=== PATIENT | female | born 1965 | race Two or more races ===

== ENCOUNTER 2020-01-04 10:35 | Emergency (ER) | payer OTHER ==
[~2020-01-04] VITALS: Ht 172.7 cm; Wt 51.7 kg
[2020-01-04 11:05] LABS: BASOPHILS % (AUTO) 0 % (0-1); EOSINOPHILS % (AUTO) 0 % (1-7); LYMPHOCYTES # (AUTO) 0.37 x10^3/uL (1-3.4); LYMPHOCYTES % (AUTO) 7 % (22-44); MD NO; MEAN CORPUSCULAR HEMOGLOBIN 29.3 pg (27.0-34.8); MEAN CORPUSCULAR HGB CONC 33.7 g/dL (32.4-35.8); MEAN CORPUSCULAR VOLUME 86.9 fL (80-100); MEAN PLATELET VOLUME 10.6 fL (7.4-10.4); MONOCYTES # (AUTO) 0.05 x10^3/uL (0.2-0.8); MONOCYTES % (AUTO) 1 % (2-9); NEUTROPHILS # (AUTO) 5.03 x10^3/uL (1.8-6.8); NEUTROPHILS % (AUTO) 92 % (42-75); PLATELET COUNT 150 x10^3/uL (130-400); RED BLOOD COUNT 5.56 x10^6/uL (3.82-5.3); RED CELL DISTRIBUTION WIDTH 13.8 % (9.6-15.2)
--- NOTE | 2020-01-04 11:05 | NUR ---
Late entry due to pt care: Pt arrived via EMS from home. Per EMS pt's Binh called 911 when he found his in bed unresponsive this morning. Binh found a suicide note at the foot of the bed as well as an empty bottle of Lorazepam by pt's head. Lorazepam bottle dated that it was filled April 2018, unknown how many pills were in the bottle. On pt arrival to ER pt responsive only to painful stimuli, is able to swallow her own secretions and maintain her own airway. Pt placed in gown, positioned for comfort in bed. Dr. Newell at bedside on pt arrival to department. Continuous heart, oxygen and BP monitors applied, all safety measures observed. Marroquin inserted per Dr. Newell, urine sample obtained, labeled at bedside, sent to lab.
--- NOTE | 2020-01-04 11:11 | NUR ---
Pt's Binh now at bedside, POC discussed. Binh appears very distressed, verbal reassurance provided. Arin SW at bedside to speak with pt's .
[2020-01-04 11:15] LABS: ALANINE AMINOTRANSFERASE 23 U/L (12-78); ALBUMIN 4.1 g/dL (3.4-5.0); ANION GAP 7 mmol/L (5-15); CALCIUM 9.2 mg/dL (8.5-10.1); CHLORIDE 108 mmol/L (98-107); CREATININE 0.98 mg/dL (0.55-1.02)
[2020-01-04 11:19] LABS: ALKALINE PHOSPHATASE 74 U/L (45-117); BILIRUBIN,TOTAL 0.7 mg/dL (0.2-1.0); TOTAL PROTEIN 8.1 g/dL (6.4-8.2)
--- NOTE | 2020-01-04 11:21 | NUR ---
Dr. Newell at bedside to speak with pt's Binh. No change in pt condition at this time.
[2020-01-04] MEDS ORDERED: LORA-446 PO (11:23)
[2020-01-04] MEDS ORDERED: OLAN5TAB9 PO (11:23)
[2020-01-04] MEDS ORDERED: MIRT-34 PO (11:23)
[2020-01-04 11:24] LABS: SALICYLATE LEVEL < 1.7 mg/dL (2.8-20.0)
[2020-01-04 11:33] LABS: MICROSCOPIC AUTO
[2020-01-04 11:40] LABS: CULTURE INDICATED? YES
--- NOTE | 2020-01-04 11:57 | NUR ---
Pt's Binh remains at bedside, POC discussed and verbal reassurance provided. No change in pt condition at this time.
[2020-01-04] MEDS ORDERED: CEFTRIAXONE PMX 1GM/50ML 50 ML IV ONE (12:00)
[2020-01-04] MEDS ORDERED: CEFTRIAXONE PMX 1GM/50ML 50 ML ONE (12:03)
--- NOTE | 2020-01-04 12:14 | NUR ---
BREAK RN: PT RESTING ON GRUNEY. NO ACUTE DISTRESS NOTED. PT RESPONSIVE TO PAIN. RESP SHALLOW BUT EVEN AND UNLABORED. PUPILS 4MM PERRLA. PT ON CONT BP, CARDIAC AND O2 MONITORS. NSR 70'S NOTED ON CARIDAC MONITOR. AT BEDSIDE.
[2020-01-04 12:41] LABS: AMPHETAMINE SCREEN, URINE Negative (Negative); BARBITURATE SCREEN, URINE Negative (Negative); BENZODIAZEPINE SCREEN, URINE Negative (Negative); CANNABINOID SCREEN, URINE Negative (Negative); COCAINE SCREEN, URINE Negative (Negative); METHADONE SCREEN, URINE Negative (Negative); OPIATE SCREEN, URINE Negative (Negative)
--- NOTE | 2020-01-04 12:54 | NUR ---
Pt continues resting in bed with eyes closed, resp even and unlabored, NADN. No change in pt condition. Pt's remains at bedside.
--- NOTE | 2020-01-04 13:42 | NUR ---
REPORT RECIEVED FROM LUL LYNCH
--- NOTE | 2020-01-04 14:23 | NUR ---
PT RESTING IN BED, VSS. NOW RESPONSIVE TO PAINFUL STIMULI. WILL CONTINUE TO MONITOR.
[2020-01-04 15:10] VITALS: BP 122/71
--- NOTE | 2020-01-04 15:11 | NUR ---
PT TO CT
--- NOTE | 2020-01-04 15:27 | NUR ---
PT TO CT SCAN VIA GURNEY, MORE MOVEMENT NOTED. AT BS.
--- NOTE | 2020-01-04 15:27 | NUR ---
REPORT CALLED TO JEN SPENCER RN.
--- NOTE | 2020-01-04 16:03 | NUR ---
REPORT TO [facility] FOR TRANSPORT TO [facility] [place]
[2020-01-05] MEDS ORDERED: PANTOPRAZOLE 80 MG in SODIUM CHLORIDE 0.9% 100 ML IV SCH (14:25)
== END 2020-01-04 16:10 | disposition short-term general hospital (02) ==
LOC: ED 11:35 → UNDOADMIN 12:17 → EDIP 12:17
DX: T42.4X1A Poisoning by benzodiazepines, accidental (unintentional), initial encounter (principal); R45.851 Suicidal ideations; R41.82 Altered mental status, unspecified; R94.31 Abnormal electrocardiogram [ECG] [EKG]; Y92.9 Unspecified place or not applicable
CPT/HCPCS: 36415; 36600; 70450; 71045; 80053; 80307; 81001; 82140; 82803; 84703; 85025; 87077; 87086; 87186; 93005; 96365; 99285; J0696; 99291